=== PATIENT | male | born 1940 | race Caucasian/White ===

== ENCOUNTER 2017-04-30 03:43 | Inpatient (IN) | payer OTHER, MEDICARE ==
[~2017-04-30] VITALS: Ht 170.2 cm; Wt 79.4 kg
[2017-04-30] VITALS (10 sets, daily range): BP systolic 139–233; BP diastolic 72–132; PULSE 69–86; RESP 16–20; TEMP 96.5–98.3; O2SAT 92–99
[2017-04-30] MEDS ORDERED: SODIUM CHLORIDE 0.9% FLUSH 10 ML FLUSH IV FLUSH PRN ×2 (04:00→06:30)
[2017-04-30] MEDS ORDERED: MORPHINE SULFATE 4 MG/ML INJ IV PUSH ONE (04:00)
[2017-04-30] MEDS ORDERED: ONDANSETRON HCL 4 MG/2 ML VIAL IVP ONE (04:00)
--- NOTE | 2017-04-30 04:29 | PD ---
HPI Chief Complaint: Flank/Kidney Pain Time Seen by Provider: 03:53 Travel History International Travel<30 days: No Contact w/Intl Traveler<30days: No Traveled to known affect area: No History of Present Illness HPI 76-year-old male here for evaluation of left flank pain. The patient reports that he had the pain 2 days ago. The pain seemed to have resolved yesterday, then returned tonight, waking him up from sleep. The patient reports the pain as stabbing, slightly worse with movements, moderate to severe currently, associated with nausea. He denies hematuria or urinary symptoms. No chest pain or dyspnea. No paresthesias or motor deficits. No fevers or chills. 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 SKIN: Focused skin assessment warm/dry. HEAD: Atraumatic. Normocephalic. EYES: Pupils equal and round. No scleral icterus. No injection or drainage. ENT: Mucous membranes pink and moist. NECK: Trachea midline. No JVD. CARDIOVASCULAR: Regular rate and rhythm. Distal pulses brisk and equal bilaterally. RESPIRATORY: No accessory muscle use. Clear to auscultation. Breath sounds equal bilaterally. GASTROINTESTINAL: Abdomen soft, non-tender, nondistended. MUSCULOSKELETAL: No obvious deformities. No clubbing. No cyanosis. No edema. Moderate left CVA tenderness. No right CVA tenderness. NEUROLOGICAL: Awake and alert. No obvious cranial nerve deficits. Motor grossly within normal limits. Normal speech. PSYCHIATRIC: Appropriate mood and affect; insight and judgment normal. Data Data Last Documented VS Vital Signs Date Time Temp Pulse Resp B/P (MAP) Pulse Ox O2 Delivery O2 Flow Rate FiO2 04/30/17 06:28 04/30/17 05:00 69 16 97 Room Air 04/30/17 03:45 97.5 Orders Orders Complete Blood Count With Diff (04/30/17 03:58) Comprehensive Metabolic Panel (04/30/17 03:58) Lipase (04/30/17 03:58) Prothrombin Time / Inr (Pt) (04/30/17 03:58) Act Partial Throm Time (Ptt) (04/30/17 03:58) Urinalysis - C+S If Indicated (04/30/17 03:58) Iv Access Insert/Monitor (04/30/17 03:58) Ecg Monitoring (04/30/17 03:58) Oximetry (04/30/17 03:58) Morphine Inj (Morphine Inj) (04/30/17 04:00) Ondansetron Inj (Zofran Inj) (04/30/17 04:00) Sodium Chloride 0.9% Flush (Ns Flush) (04/30/17 04:00) Ckmb (Isoenzyme) Profile (04/30/17 03:58) Troponin I (04/30/17 03:58) CKMB (04/30/17 04:05) CKMB% (04/30/17 04:05) Sodium Chlor 0.9% 1000 Ml Inj (Ns 1000 M (04/30/17 05:17) Ct Abd/Pel W/O Iv Contrast (04/30/17 05:18) Urinary Catheter Insert/Apply (04/30/17 06:05) Tamsulosin (Flomax) (04/30/17 09:00) Admit To Inpatient (04/30/17 ) Vital Signs (Adult) Q4H (04/30/17 06:23) Activity Oob Ad Jayne (04/30/17 06:23) Intake + Output KATYA.QSHIFT (04/30/17 06:23) Diet Regular Basic (04/30/17 Breakfast) Sodium Chlor 0.9% 1000 Ml Inj (Ns 1000 M (04/30/17 06:23) Sodium Chloride 0.9% Flush (Ns Flush) (04/30/17 06:30) Sodium Chloride 0.9% Flush (Ns Flush) (04/30/17 09:00) Ondansetron Inj (Zofran Inj) (04/30/17 06:30) Comprehensive Metabolic Panel (05/01/17 06:00) Complete Blood Count With Diff (05/01/17 06:00) Scd Bilateral/Knee High KATYA.BID (04/30/17 06:23) Stephen Bilateral/Knee High KATYA.QSHIFT (04/30/17 06:30) Acetaminophen (Tylenol) (04/30/17 06:30) Acetamin-Hydrocod 325-5 Mg ([place] 5-325 (04/30/17 06:30) Morphine Inj (Morphine Inj) (04/30/17 06:30) Docusate Sodium-Senna (Michelle-Colace) (04/30/17 09:00) Magnesium Hydroxide Liq (Milk Of Magnesi (04/30/17 06:30) Sennosides (Senokot) (04/30/17 06:30) Bisacodyl Supp (Dulcolax Supp) (04/30/17 06:30) Lactulose Liq (Lactulose Liq) (04/30/17 06:30) Inpatient Certification (04/30/17 ) Consult Urology (04/30/17 ) Labs Laboratory Tests Test 04/30/17 04:05 04/30/17 05:30 White Blood Count 7.2 TH/MM3 Red Blood Count 4.36 MIL/MM3 Hemoglobin 13.3 GM/DL Hematocrit 40.0 % Mean Corpuscular Volume 91.7 FL Mean Corpuscular Hemoglobin 30.5 PG Mean Corpuscular Hemoglobin Concent 33.3 % Red Cell Distribution Width 14.5 % Platelet Count 186 TH/MM3 Mean Platelet Volume 8.8 FL Neutrophils (%) (Auto) 67.0 % Lymphocytes (%) (Auto) 20.3 % Monocytes (%) (Auto) 8.2 % Eosinophils (%) (Auto) 3.9 % Basophils (%) (Auto) 0.6 % Neutrophils # (Auto) 4.8 TH/MM3 Lymphocytes # (Auto) 1.5 TH/MM3 Monocytes # (Auto) 0.6 TH/MM3 Eosinophils # (Auto) 0.3 TH/MM3 Basophils # (Auto) 0.0 TH/MM3 CBC Comment DIFF FINAL Differential Comment Prothrombin Time 10.0 SEC Prothromb Time International Ratio 1.0 RATIO Activated Partial Thromboplast Time 28.3 SEC Blood Urea Nitrogen 26 MG/DL Creatinine 2.06 MG/DL Random Glucose 92 MG/DL Total Protein 7.4 GM/DL Albumin 3.6 GM/DL Calcium Level 8.7 MG/DL Alkaline Phosphatase 75 U/L Aspartate Amino Transf (AST/SGOT) 27 U/L Alanine Aminotransferase (ALT/SGPT) 29 U/L Total Bilirubin 0.5 MG/DL Sodium Level 144 MEQ/L Potassium Level 4.1 MEQ/L Chloride Level 110 MEQ/L Carbon Dioxide Level 27.0 MEQ/L Anion Gap 7 MEQ/L Estimat Glomerular Filtration Rate 31 ML/MIN Total Creatine Kinase 279 U/L Creatine Kinase MB 5.2 NG/ML Troponin I LESS THAN 0.02 NG/ML Lipase 559 U/L Urine Color LIGHT-YELLOW Urine Turbidity CLEAR Urine pH 5.5 Urine Specific [place] 1.007 Urine Protein NEG mg/dL Urine Glucose (UA) NEG mg/dL Urine Ketones NEG mg/dL Urine Occult Blood MOD Urine Nitrite NEG Urine Bilirubin NEG Urine Urobilinogen LESS THAN 2.0 MG/DL Urine Leukocyte Esterase NEG Urine RBC 9 /hpf Urine WBC 2 /hpf Urine Squamous Epithelial Cells <1 /hpf Urine Hyaline Casts 1 /lpf Urine Mucus FEW /lpf Microscopic Urinalysis Comment CULT NOT INDICATED MDM Medical Decision Making Medical Screen Exam Complete: Yes Emergency Medical Condition: Yes Differential Diagnosis Nephrolithiasis, ureterolithiasis, pyelonephritis, UTI, diverticulitis, dissection, AAA Narrative Course Initial vital signs show heart rate 84, blood pressure 233/130, pulse ox 99% on room air, oral temp of 97.5F. CBC: WBC 7.2, hemoglobin 13.3, hematocrit 40, platelets 186. CMP is remarkable for BUN 26, creatinine 2.06, GFR 31. Lipase is 559. Cardiac enzymes are negative. Patient reports that he is on Flomax, however is unaware of any previous history of renal insufficiency. There are no prior labs for comparison. UA shows moderate occult blood, 9 RBCs, few mucus. CT abdomen pelvis: CONCLUSION: 1. Bilateral hydronephrosis and hydroureter with distended urinary bladder with trabeculated wall. This is likely related to chronic bladder outlet obstruction given the enlarged prostate gland. 2. Moderate atherosclerotic disease. The patient voided just prior to CT abdomen pelvis and put out about 150 cc of urine, feeling as though he fully emptied his bladder. Vu will be placed for bladder outlet obstruction/obstructive uropathy. Patient's blood pressure remains elevated at 233/130. I suspect that this is likely secondary to urinary output obstruction and will reassess this after Vu catheter is placed. He is not displaying any signs or symptoms of hypertensive crisis. Vu catheter placed and patient had an immediate output of about 800 cc of clear urine. States that his left flank pain has resolved. Repeat blood pressure is now 200/100. He reports that he has had prostate issues and is on Flomax and is supposed to see a urologist in May 2017, however he cannot recall the name of this urologist. Given obstructive uropathy with renal insufficiency and bilateral hydronephrosis , the patient will be admitted for further treatment and evaluation and likely neurology consultation. Case discussed with hospitalist Dr. Alberto who will admit the patient to her service. Diagnosis Primary Impression: Obstructive uropathy Additional Impressions: Renal insufficiency Enlarged prostate Flank pain Admitting Information Admitting Physician Requests: Admit Scripts No Active Prescriptions or Reported Meds Xander Trujillo MD Apr 30, 2017 04:29
[2017-04-30 04:41] LABS: AUTOMATED NEUTROPHIL # 4.8 TH/MM3 (1.8-7.7); BASOPHIL % 0.6 % (0.0-2.0); EOSINOPHIL # 0.3 TH/MM3 (0-0.4); EOSINOPHIL % 3.9 % (0.0-4.0); HEMO FLAGS DIFF FINAL; LYMPH % 20.3 % (9.0-44.0); LYMPHOCYTE # 1.5 TH/MM3 (1.0-4.8); MEAN CELL VOLUME 91.7 FL (80.0-100.0); MEAN CORPUSCULAR HEMOGLOBIN 30.5 PG (27.0-34.0); MEAN CORPUSCULAR HGB CONC 33.3 % (32.0-36.0); MONO % 8.2 % (0.0-8.0); PLATELET COUNT 186 TH/MM3 (150-450); RED BLOOD COUNT 4.36 MIL/MM3 (4.50-5.90); RED CELL DISTRIBUTION WIDTH 14.5 % (11.6-17.2); WHITE BLOOD COUNT 7.2 TH/MM3 (4.0-11.0)
[2017-04-30 04:57] LABS: APTT (PATIENT) 28.3 SEC (24.3-30.1)
[2017-04-30 05:07] LABS: ALT (GPT) 29 U/L (12-78); ANION GAP 7 MEQ/L (5-15); AST (GOT) 27 U/L (15-37); BLOOD UREA NITROGEN 26 MG/DL (7-18); CHLORIDE 110 MEQ/L (98-107); GLOMERULAR FILTRATION RATE 31 ML/MIN (>89); POTASSIUM 4.1 MEQ/L (3.5-5.1); SODIUM (NA) 144 MEQ/L (136-145)
[2017-04-30 05:12] LABS: ALKALINE PHOSPHATASE 75 U/L (45-117); CREATINE KINASE 279 U/L (39-308); TOTAL BILIRUBIN ADULT 0.5 MG/DL (0.2-1.0)
[2017-04-30] MEDS ORDERED: SODIUM CHLOR 0.9% 1000 ML INJ 1,000 ML IV SCH (05:17)
[2017-04-30 05:25] LABS: CKMB 5.2 NG/ML (0.5-3.6)
--- NOTE | 2017-04-30 05:48 | RADRPT ---
EXAM DATE/TIME: 04/30/2017 05:29 [place] COMPARISON: No previous studies available for comparison. INDICATIONS : Intermittent left flank pain with vomiting X 3 days. ORAL CONTRAST: No oral contrast ingested. RADIATION DOSE: 7.51 CTDIvol (mGy) MEDICAL HISTORY : Melanoma. SURGICAL HISTORY : None. ENCOUNTER: Initial ACUITY: 1 day PAIN SCALE: 3/10 LOCATION: Left flank TECHNIQUE: Volumetric scanning of the abdomen and pelvis was performed. Using automated exposure control and ad justment of the mA and/or kV according to patient size, radiation dose was kept as low as reasonably achievable to obtain optimal diagnostic quality images. DICOM format image data is available electro nically for review and comparison. FINDINGS: LOWER LUNGS: There is mild atelectasis bilaterally. LIVER: Homogeneous density without lesion. There is no dilation of the biliary tree. No calcified gallston es. SPLEEN: Normal size without lesion. PANCREAS: Within normal limits. KIDNEYS: Normal in size and shape. There is no mass or stone. There is bilateral hydronephrosis and hydrouret er. ADRENAL GLANDS: Within normal limits. VASCULAR: There is no aortic aneurysm. There is moderate atherosclerotic disease. BOWEL/MESENTERY: The stomach, small bowel, and colon demonstrate no acute abnormality. There is no free intraperitone al air or fluid. ABDOMINAL WALL: Within normal limits. RETROPERITONEUM: There is no lymphadenopathy. BLADDER: Urinary bladder is very distended with the dome extending to the level of the umbilicus. Wall demonst rates trabeculation with focal areas of outpouching. REPRODUCTIVE: Prostate gland is enlarged. INGUINAL: There is no lymphadenopathy or hernia. MUSCULOSKELETAL: There are degenerative changes of the lumbar spine. CONCLUSION: 1. Bilateral hydronephrosis and hydroureter with distended urinary bladder with trabeculated wall. Th is is likely related to chronic bladder outlet obstruction given the enlarged prostate gland. 2. Moderate atherosclerotic disease. Victor Hugo Del Rosario MD on April 30, 2017 at 5:42 Board Certified Radiologist. This report was verified electronically.
[2017-04-30 05:52] LABS: BLOOD, URINE MOD (NEG); COMMENT (UR) CULT NOT INDICATED; CULTURE IF INDICATED CULT NOT INDICATED; GLUCOSE,URINE NEG (NEG); HYALINE CAST, URINE 1 /lpf (RARE); KETONE, URINE NEG (NEG); MUCUS URINE FEW /lpf (OCC); NITRITE,URINE NEG (NEG); PH, URINE 5.5 (5.0-8.5); SQUAMOUS EPITHELIAL CELL URINE <1 /hpf (0-5); URINE COLOR LIGHT-YELLOW (YELLW/STRAW)
[2017-04-30] MEDS ORDERED: MORPHINE SULFATE 4 MG/ML INJ IV PUSH PRN (06:30)
[2017-04-30] MEDS ORDERED: LACTULOSE SYRUP 20 GM/30 ML CUP PO PRN (06:30)
[2017-04-30] MEDS ORDERED: ACETAMINOPHEN/HYDROcodone 325 MG/5 MG TAB PO PRN (06:30)
[2017-04-30] MEDS ORDERED: SENNOSIDES 8.6 MG TAB PO PRN (06:30)
[2017-04-30] MEDS ORDERED: ACETAMINOPHEN 325 MG TAB PO PRN (06:30)
[2017-04-30] MEDS ORDERED: MAGNESIUM HYDROXIDE SUSP 30 ML CUP PO PRN (06:30)
[2017-04-30] MEDS ORDERED: ONDANSETRON HCL 4 MG/2 ML VIAL IVP PRN (06:30)
[2017-04-30] MEDS ORDERED: BISACODYL 10 MG SUPP RECTAL PRN (06:30)
[2017-04-30] MEDS: DOCUSATE SODIUM 50 MG/SENNA 8.6 MG TAB PO SCH ×2 (08:26→20:54)
[2017-04-30] MEDS: TAMSULOSIN HCL 0.4 MG CAP PO SCH (08:26)
[2017-04-30] MEDS: SODIUM CHLORIDE 0.9% FLUSH 10 ML FLUSH IV FLUSH SCH ×2 (08:27→20:54)
[2017-04-30] MEDS ORDERED: amLODIPine BESYLATE 5 MG TAB PO SCH (09:00)
[2017-04-30] MEDS: SODIUM CHLOR 0.9% 1000 ML INJ 1,000 ML IV SCH ×2 (09:00→15:43)
--- NOTE | 2017-04-30 09:58 | HHI.HP ---
[facility] Service [facility] Primary Care Physician Klever Oropeza MD Admission Diagnosis obstructive uropathy, renal insufficiency, enlarged prostate Diagnoses: Travel History International Travel<30 Days: No Contact w/Intl Traveler <30 Da: No Traveled to Known Affected Are: No History of Present Illness 76-year-old male with a past medical history significant for BPH presents to the emergency department with a 2 day history of left sided flank pain. The patient states that his pain was so great that he had emesis approximately 4-5 times. His pain resolved somewhat during the day yesterday and he went to bed but awoke from sleep at 2 AM in severe pain. He was brought to the emergency department for further evaluation. He denies any fever or chills. States he takes Flomax daily. He states he has been urinating small amounts lately. Denies any difficulty with starting or stopping flow. Does report that he feels he was not fully emptying his bladder. He was evaluated by urology in May 2015 for an elevated PSA, was started on Flomax with instructions to observe. Lab values significant for a creatinine of 2.06. CT of the abdomen/ pelvis revealed bilateral hydronephrosis and hydroureter with distended urinary bladder likely related to chronic bladder outlet obstruction secondary to enlarged prostate. Patient was found to be hypertensive on his arrival to the emergency department. He states he has never had high blood pressure and does not take any antihypertensive medications. His blood pressure this morning was 207/108. He denies headache or visual changes. Review of Systems Denies fever or chills Denies blurry vision, otorrhea, rhinorrhea Denies sore throat and cough No chest pain, palpitations, shortness of breath No abdominal pain Denies constipation/diarrhea/nausea/vomiting Denies muscle pain/weakness No rashes Past Family Social History Past Medical History BPH Past Surgical History Skin cancer removal on his face Reported Medications Flomax daily Allergies: Coded Allergies: No Known Allergies (Unverified , 04/30/17) Family History No family history of coronary artery disease or diabetes mellitus Social History Never smoker. Occasional alcohol. Denies illicit drugs. Physical Exam Vital Signs Vital Signs Date Time Temp Pulse Resp B/P (MAP) Pulse Ox O2 Delivery O2 Flow Rate FiO2 04/30/17 08:00 96.5 71 18 212/101 (138) 95 207/108 (141) 04/30/17 06:43 69 16 172/99 (123) 97 Room Air 04/30/17 06:28 04/30/17 05:00 69 16 205/100 (135) 97 Room Air 04/30/17 03:59 96 Room Air 04/30/17 03:55 223/118 (153) 224/132 (162) 04/30/17 03:52 80 16 223/118 (153) 97 04/30/17 03:45 97.5 84 18 233/130 (164) 99 Room Air Physical Exam GENERAL: male sitting up in bed eating breakfast SKIN: No rashes, ecchymoses or lesions. Cool and dry. HEAD: Atraumatic. Normocephalic. No temporal or scalp tenderness. EYES: Pupils equal round and reactive. Extraocular motions intact. No scleral icterus. No injection or drainage. ENT: Nose without bleeding, purulent drainage or septal hematoma. Throat without erythema, tonsillar hypertrophy or exudate. Uvula midline. Airway patent. NECK: Trachea midline. No JVD or lymphadenopathy. Supple, nontender, no meningeal signs. CARDIOVASCULAR: Regular rate and rhythm without murmurs, gallops, or rubs. RESPIRATORY: Clear to auscultation. Breath sounds equal bilaterally. No wheezes , rales, or rhonchi. GASTROINTESTINAL: Abdomen soft, non-tender, nondistended. No hepato-splenomegaly , or palpable masses. No guarding. MUSCULOSKELETAL: Extremities without clubbing, cyanosis, or edema. No joint tenderness, effusion, or edema noted. No calf tenderness. NEUROLOGICAL: Awake and alert. Cranial nerves II through XII intact. Motor and sensory grossly within normal limits. Normal speech. Laboratory Laboratory Tests Test 04/30/17 04:05 04/30/17 05:30 White Blood Count 7.2 Red Blood Count 4.36 Hemoglobin 13.3 Hematocrit 40.0 Mean Corpuscular Volume 91.7 Mean Corpuscular Hemoglobin 30.5 Mean Corpuscular Hemoglobin Concent 33.3 Red Cell Distribution Width 14.5 Platelet Count 186 Mean Platelet Volume 8.8 Neutrophils (%) (Auto) 67.0 Lymphocytes (%) (Auto) 20.3 Monocytes (%) (Auto) 8.2 Eosinophils (%) (Auto) 3.9 Basophils (%) (Auto) 0.6 Neutrophils # (Auto) 4.8 Lymphocytes # (Auto) 1.5 Monocytes # (Auto) 0.6 Eosinophils # (Auto) 0.3 Basophils # (Auto) 0.0 CBC Comment DIFF FINAL Differential Comment Prothrombin Time 10.0 Prothromb Time International Ratio 1.0 Activated Partial Thromboplast Time 28.3 Blood Urea Nitrogen 26 Creatinine 2.06 Random Glucose 92 Total Protein 7.4 Albumin 3.6 Calcium Level 8.7 Alkaline Phosphatase 75 Aspartate Amino Transf (AST/SGOT) 27 Alanine Aminotransferase (ALT/SGPT) 29 Total Bilirubin 0.5 Sodium Level 144 Potassium Level 4.1 Chloride Level 110 Carbon Dioxide Level 27.0 Anion Gap 7 Estimat Glomerular Filtration Rate 31 Total Creatine Kinase 279 Creatine Kinase MB 5.2 Troponin I LESS THAN 0.02 Lipase 559 Urine Color LIGHT-YELLOW Urine Turbidity CLEAR Urine pH 5.5 Urine Specific [place] 1.007 Urine Protein NEG Urine Glucose (UA) NEG Urine Ketones NEG Urine Occult Blood MOD Urine Nitrite NEG Urine Bilirubin NEG Urine Urobilinogen LESS THAN 2.0 Urine Leukocyte Esterase NEG Urine RBC 9 Urine WBC 2 Urine Squamous Epithelial Cells <1 Urine Hyaline Casts 1 Urine Mucus FEW Microscopic Urinalysis Comment CULT NOT INDICATED Result Diagram: 04/30/1740404/30/17404 Caprini VTE Risk Assessment Caprini VTE Risk Assessment: Mod/High Risk (score >= 2) Caprini Risk Assessment Model Point Value = 1 Point Value = 2 Point Value = 3 Point Value = 5 Age 41-60 Minor surgery BMI > 25 kg/m2 Swollen legs Varicose veins or History of unexplained or recurrent spontaneous Oral contraceptives or hormone replacement Sepsis (< 1 month) Serious lung disease, including pneumonia (< 1 month) Abnormal pulmonary function Acute myocardial infarction Congestive heart failure (< 1 month) History of inflammatory bowel disease Medical patient at bed rest Age 61-74 Arthroscopic surgery Major open surgery (> 45 min) Laparoscopic surgery (> 45 min) Malignancy Confined to bed (> 72 hours) Immobilizing plaster cast Central venous access Age >= 75 History of VTE Family history of VTE Factor V Leiden Prothrombin [id number] Lupus anticoagulant Anticardiolipin antibodies Elevated serum homocysteine Heparin-induced thrombocytopenia Other congenital or acquired thrombophilia Stroke (< 1 month) Elective arthroplasty Hip, pelvis, or leg fracture Acute spinal cord injury (< 1 month) Prophylaxis Regimen Total Risk Factor Score Risk Level Prophylaxis Regimen 0-1 Low Early ambulation 2 Moderate Order ONE of the following: *Sequential Compression Device (SCD) *Heparin 5000 units SQ BID 3-4 Higher Order ONE of the following medications: *Heparin 5000 units SQ TID *Enoxaparin/Lovenox 40 mg SQ daily (WT < 150 kg, CrCl > 30 mL/min) *Enoxaparin/Lovenox 30 mg SQ daily (WT < 150 kg, CrCl > 10-29 mL/min) *Enoxaparin/Lovenox 30 mg SQ BID (WT < 150 kg, CrCl > 30 mL/min) AND/OR *Sequential Compression Device (SCD) 5 or more Highest Order ONE of the following medications: *Heparin 5000 units SQ TID (Preferred with Epidurals) *Enoxaparin/Lovenox 40 mg SQ daily (WT < 150 kg, CrCl > 30 mL/min) *Enoxaparin/Lovenox 30 mg SQ daily (WT < 150 kg, CrCl > 10-29 mL/min) *Enoxaparin/Lovenox 30 mg SQ BID (WT < 150 kg, CrCl > 30 mL/min) AND *Sequential Compression Device (SCD) Assessment and Plan Assessment and Plan 76-year-old male with a past medical history BPH presents with renal failure secondary to obstruction and hypertensive urgency. 1. Hypertensive urgency Patient without history of hypertension and not on any antihypertensive medications at home Started amlodipine, will monitor blood pressure and adjust dosing as needed When necessary clonidine 2. Obstructive uropathy/acute renal insufficiency Creatinine 2.06, no baseline for comparison Patient with no history of CKD. CT of the abdomen and pelvis shows bilateral hydronephrosis with hydroureter likely secondary to obstruction from enlarged prostate Vu placed in the ED with 800 cc output of urine Continue Vu catheter Urology consulted, appreciate recommendations Follow renal function, anticipate improvement now that patient has Vu IVF hydration FEN Regular diet NS at 100 cc/hr Electrolytes: monitor and replete prn Heparin Physician Certification 2 Midnight Certification Type: Admission for Inpatient Services Order for Inpatient Services The services are ordered in accordance with Medicare regulations or non- Medicare payer requirements, as applicable. In the case of services not specified as inpatient-only, they are appropriately provided as inpatient services in accordance with the 2-midnight benchmark. Estimated LOS (days): 2 2 days is the estimated time the patient will need to remain in the hospital, assuming treatment plan goals are met and no additional complications. Post-Hospital Plan: Not yet determined Rahel Lyle MD Apr 30, 2017 09:58
[2017-04-30] MEDS ORDERED: TAMSULOSIN HCL 0.4 MG CAP PO SCH (10:00)
[2017-04-30] MEDS: cloNIDine HCL 0.1 MG TAB PO PRN (21:09)
[2017-04-30] MEDS: HEPARIN SODIUM - SQ 10,000 UNITS/ML VIAL SQ SCH (21:14)
--- NOTE | 2017-04-30 22:15 | EKG ---
Date Performed: 04/30/2017 Time Performed: 03:56:51 PTAGE: 76 years EKG: Sinus rhythm RIGHT BUNDLE BRANCH BLOCK ABNORMAL ECG NO PREVIOUS TRACING DOCTOR: Johnny Garcia Interpretating Date/Time 04/30/2017 22:14:20
[2017-05-01] VITALS: BP 135/75; PULSE 82; RESP 20; TEMP 98.8; O2SAT 92
[2017-05-01] MEDS: SODIUM CHLOR 0.9% 1000 ML INJ 1,000 ML IV SCH ×3 (01:43→21:21)
[2017-05-01 06:53] LABS: AUTOMATED NEUTROPHIL # 4.4 TH/MM3 (1.8-7.7); BASOPHIL % 0.7 % (0.0-2.0); EOSINOPHIL # 0.3 TH/MM3 (0-0.4); EOSINOPHIL % 4.3 % (0.0-4.0); HEMATOCRIT 36.6 % (39.0-51.0); HEMO FLAGS DIFF FINAL; LYMPH % 23.5 % (9.0-44.0); LYMPHOCYTE # 1.6 TH/MM3 (1.0-4.8); MEAN CORPUSCULAR HEMOGLOBIN 30.8 PG (27.0-34.0); MEAN CORPUSCULAR HGB CONC 33.5 % (32.0-36.0); MONO % 7.8 % (0.0-8.0); NEUT % 63.7 % (16.0-70.0); PLATELET COUNT 161 TH/MM3 (150-450); RED BLOOD COUNT 3.98 MIL/MM3 (4.50-5.90); RED CELL DISTRIBUTION WIDTH 13.9 % (11.6-17.2); WHITE BLOOD COUNT 6.9 TH/MM3 (4.0-11.0)
[2017-05-01 07:20] LABS: ALKALINE PHOSPHATASE 66 U/L (45-117); ALT (GPT) 16 U/L (12-78); ANION GAP 7 MEQ/L (5-15); AST (GOT) 19 U/L (15-37); BICARBONATE 26.2 MEQ/L (21.0-32.0); BLOOD UREA NITROGEN 22 MG/DL (7-18); CHLORIDE 110 MEQ/L (98-107); GLOMERULAR FILTRATION RATE 36 ML/MIN (>89); POTASSIUM 3.9 MEQ/L (3.5-5.1); SODIUM (NA) 143 MEQ/L (136-145); TOTAL BILIRUBIN ADULT 0.5 MG/DL (0.2-1.0)
[2017-05-01 08:00] VITALS: BP 146/80; PULSE 75; RESP 18; TEMP 97; O2SAT 96
[2017-05-01] MEDS: HEPARIN SODIUM - SQ 10,000 UNITS/ML VIAL SQ SCH ×2 (09:00→21:00)
[2017-05-01] MEDS: TAMSULOSIN HCL 0.4 MG CAP PO SCH (09:23)
[2017-05-01] MEDS: DOCUSATE SODIUM 50 MG/SENNA 8.6 MG TAB PO SCH ×2 (09:23→21:21)
[2017-05-01] MEDS: SODIUM CHLORIDE 0.9% FLUSH 10 ML FLUSH IV FLUSH SCH ×2 (09:24→21:00)
[2017-05-01 12:00] VITALS: BP 156/74; PULSE 77; RESP 18; TEMP 96.5; O2SAT 95
--- NOTE | 2017-05-01 13:13 | HHI.PR ---
Subjective Remarks Urology consult pending. She has some improvement in his renal function after catheter placement. Hypertensive urgency is also improving through time. Objective Vital Signs Date Time Temp Pulse Resp B/P (MAP) Pulse Ox O2 Delivery O2 Flow Rate FiO2 05/01/17 12:00 96.5 77 18 156/74 (101) 95 05/01/17 08:00 97.0 75 18 146/80 (102) 96 05/01/17 00:00 98.8 82 20 135/75 (95) 92 04/30/17 20:00 97.6 86 20 167/81 (109) 92 04/30/17 16:00 98.3 79 18 139/87 (104) 98 I/O 04/30/17 04/30/17 04/30/17 05/01/17 05/01/17 05/01/17 06:59 14:59 22:59 06:59 14:59 22:59 Intake Total 1506 ml 1777 ml Output Total 1200 ml 2150 ml 450 ml 1650 ml Balance -1200 ml -2150 ml 1056 ml 127 ml Intake Oral 1000 ml 240 ml IV Total 506 ml 1537 ml Output Urine Total 1200 ml 2150 ml 450 ml 1650 ml Result Diagram: 05/01/172 05/01/17 045 Objective Remarks GENERAL: NAD, A&Ox3, catheter in place HEAD: Normocephalic. NECK: Supple, trachea midline. No lymphadenopathy. EYES: No scleral icterus. No injection or drainage. CARDIOVASCULAR: Regular rate and rhythm without murmurs, gallops, or rubs. RESPIRATORY: Breath sounds equal bilaterally. No accessory muscle use. GASTROINTESTINAL: Abdomen soft, non-tender, nondistended. MUSCULOSKELETAL: No cyanosis, or edema. SKIN: Warm and dry. NEURO: No focal neurological deficitis. A/P Problem List: (1) Enlarged prostate ICD Code: N40.0 - Benign prostatic hyperplasia without lower urinary tract symptoms Status: Acute (2) Obstructive uropathy ICD Code: N13.9 - Obstructive and reflux uropathy, unspecified Status: Acute (3) Renal insufficiency ICD Code: N28.9 - Disorder of kidney and ureter, unspecified Status: Acute (4) Flank pain ICD Code: R10.9 - Unspecified abdominal pain Status: Acute Assessment and Plan Assessment and Plan 76-year-old male admitted secondary to urinary obstruction with acute renal insufficiency Hypertensive urgency Hypertension Improving Blood pressure treatments adjusted Continue to monitor blood pressures Obstructive uropathy Acute renal insufficiency Acute kidney injury Follow renal function Improving after catheter placement Continue to monitor renal function Urology following DVT prophylaxis Mario Willoughby MD May 01, 2017 13:13
[2017-05-01] MEDS ORDERED: MAGNESIUM HYDROXIDE SUSP 30 ML CUP PO PRN (13:15)
[2017-05-01 16:00] VITALS: BP 143/76; PULSE 73; RESP 18; TEMP 97.2; O2SAT 96
--- NOTE | 2017-05-01 19:58 | PD.CONS ---
HPI Service Urology Consult Requested By Reason for Consult Urinary retention Primary Care Physician Klever Oropeza MD Diagnosis: History of Present Illness 76yo male with history of BPH seen in consultation for Urinary retention. Patient has been having difficulty in voiding for the last several days with some bilateral flank pain. He typically sees Dr. Queen in clinic for urology and has been put on Flomax therapy for his lower urinary tract symptoms. The last few days his symptoms have progressively worsened to which point she was unable to void at all last night and developed significant abdominal and bilateral flank pain. CT scan identified a distended bladder with bilateral hydronephrosis and elevated creatinine. Vu catheter was placed with over 600 cc removed. Patient currently doing well and comfortable with catheter in place. No blood in the urine noted. Denies any fevers chills nausea vomiting. Review of Systems ROS Limitations: Clinical Condition Constitutional: DENIES: Fever Eyes: DENIES: Blurred vision Ears, nose, mouth, throat: DENIES: Hearing loss Respiratory: DENIES: Cough Cardiovascular: DENIES: Chest pain Gastrointestinal: DENIES: Abdominal pain Musculoskeletal: DENIES: Joint pain Integumentary: DENIES: Rash Neurologic: DENIES: Headache Psychiatric: DENIES: Anxiety Except as stated in HPI: all other systems reviewed are Neg Past Family Social History Past Medical History BPH Past Surgical History Skin cancer removal on his face Reported Medications Reported Meds & Active Scripts Active No Active Prescriptions or Reported Medications Allergies: Coded Allergies: No Known Allergies (Unverified , 04/30/17) Active Ordered Medications Current Medications Medications (Trade) Dose Ordered Sig/Noa Route Start Time Stop Time Status Last Admin (Flomax) 0.4 mg DAILY PO 04/30/17 09:00 05/02/17 08:51 Sodium Chloride 1,000 ml @ 70 mls/hr [id number] IV 04/30/17 06:23 05/01/17 21:21 (NS Flush) 2 ml UNSCH PRN IV FLUSH 04/30/17 06:30 (NS Flush) 2 ml BID IV FLUSH 04/30/17 09:00 05/01/17 09:24 (Zofran Inj) 4 mg Q6H PRN IVP 04/30/17 06:30 (Tylenol) 650 mg Q6H PRN PO 04/30/17 06:30 (Vinton 5-325 Mg) 1 tab Q4H PRN PO 04/30/17 06:30 (Morphine Inj) 2 mg Q3H PRN IV PUSH 04/30/17 06:30 (Michelle-Colace) 1 tab BID PO 04/30/17 09:00 05/02/17 08:51 (Senokot) 17.2 mg Q12H PRN PO 04/30/17 06:30 (Dulcolax Supp) 10 mg DAILY PRN RECTAL 04/30/17 06:30 (Lactulose Liq) 30 ml DAILY PRN PO 04/30/17 06:30 (Catapres) 0.1 mg Q6H PRN PO 04/30/17 08:00 05/01/17 21:20 (Heparin Inj) 5,000 units Q12HR SQ 04/30/17 21:00 05/01/17 21:00 (Norvasc) 10 mg DAILY PO 05/01/17 09:00 05/02/17 08:51 (Milk Of Magnesia Liq) 30 ml DAILY PRN PO 05/01/17 13:15 Family History No family history of coronary artery disease or diabetes mellitus Social History Never smoker. Occasional alcohol. Denies illicit drugs. Physical Exam Vital Signs Date Time Temp Pulse Resp B/P (MAP) Pulse Ox O2 Delivery O2 Flow Rate FiO2 05/01/17 16:00 97.2 73 18 143/76 (98) 96 05/01/17 12:00 96.5 77 18 156/74 (101) 95 05/01/17 08:00 97.0 75 18 146/80 (102) 96 05/01/17 00:00 98.8 82 20 135/75 (95) 92 04/30/17 20:00 97.6 86 20 167/81 (109) 92 Physical Exam GENERAL: This is a well-nourished, well-developed patient, in no apparent distress. SKIN: No rashes, ecchymoses or lesions. Cool and dry. HEAD: Atraumatic. Normocephalic. No temporal or scalp tenderness. EYES:. Extraocular motions intact. No scleral icterus. No injection or drainage. ENT: Nose without bleeding, purulent drainage. Airway patent. NECK: Trachea midline. No JVD or lymphadenopathy. CARDIOVASCULAR: Normal pulses RESPIRATORY: Nonlabored GASTROINTESTINAL: Abdomen soft, non-tender, nondistended. GENITOURINARY: Vu catheter in place, clear yellow drainage MUSCULOSKELETAL: Extremities without clubbing, cyanosis, or edema. NEUROLOGICAL: Awake and alert. Motor and sensory grossly within normal limits. Normal speech. Lab results reviewed: Yes Laboratory Tests Test 05/01/17 04:52 White Blood Count 6.9 Red Blood Count 3.98 Hemoglobin 12.2 Hematocrit 36.6 Mean Corpuscular Volume 92.0 Mean Corpuscular Hemoglobin 30.8 Mean Corpuscular Hemoglobin Concent 33.5 Red Cell Distribution Width 13.9 Platelet Count 161 Mean Platelet Volume 8.7 Neutrophils (%) (Auto) 63.7 Lymphocytes (%) (Auto) 23.5 Monocytes (%) (Auto) 7.8 Eosinophils (%) (Auto) 4.3 Basophils (%) (Auto) 0.7 Neutrophils # (Auto) 4.4 Lymphocytes # (Auto) 1.6 Monocytes # (Auto) 0.5 Eosinophils # (Auto) 0.3 Basophils # (Auto) 0.0 CBC Comment DIFF FINAL Differential Comment Blood Urea Nitrogen 22 Creatinine 1.84 Random Glucose 90 Total Protein 6.2 Albumin 2.8 Calcium Level 8.1 Alkaline Phosphatase 66 Aspartate Amino Transf (AST/SGOT) 19 Alanine Aminotransferase (ALT/SGPT) 16 Total Bilirubin 0.5 Sodium Level 143 Potassium Level 3.9 Chloride Level 110 Carbon Dioxide Level 26.2 Anion Gap 7 Estimat Glomerular Filtration Rate 36 Result Diagram: 05/01/17 0452 05/01/17 0452 Personally reviewed images: Yes Imaging Last Impressions Abdomen/Pelvis CT 04/30/17 0518 Signed Impressions: Service Date/Time: Sunday, April 30, 2017 05:29 - CONCLUSION: 1. Bilateral hydronephrosis and hydroureter with distended urinary bladder with trabeculated wall. This is likely related to chronic bladder outlet obstruction given the enlarged prostate gland. 2. Moderate atherosclerotic disease. Victor Hugo Del Rosario MD Assessment and Plan Problem List: (1) Flank pain ICD Code: R10.9 - Unspecified abdominal pain Status: Acute (2) Renal insufficiency ICD Code: N28.9 - Disorder of kidney and ureter, unspecified Status: Acute (3) Obstructive uropathy ICD Code: N13.9 - Obstructive and reflux uropathy, unspecified Status: Acute (4) Enlarged prostate ICD Code: N40.0 - Benign prostatic hyperplasia without lower urinary tract symptoms Status: Acute Assessment and Plan -Vu catheter in place draining well with improvement in serum creatinine since placement. -Recommend maintaining Vu catheter in place and continue Flomax therapy. -Patient may be discharged home with the Vu catheter in place with followup in urology clinic for catheter removal and voiding trial with further management regarding his BPH and lower urinary tract symptoms with Dr. Queen as an outpatient. -Please call with questions Roberth Mishra MD May 01, 2017 19:58
[2017-05-01 20:00] VITALS: BP 178/82; PULSE 81; RESP 20; TEMP 98.1; O2SAT 95
[2017-05-01] MEDS: cloNIDine HCL 0.1 MG TAB PO PRN (21:20)
--- NOTE | 2017-05-01 22:16 | HHI.PR ---
Subjective Remarks NOT SEEN Objective Vitals Vital Signs Date Time Temp Pulse Resp B/P (MAP) Pulse Ox O2 Delivery O2 Flow Rate FiO2 05/01/17 20:00 98.1 81 20 178/82 (114) 95 05/01/17 16:00 97.2 73 18 143/76 (98) 96 05/01/17 12:00 96.5 77 18 156/74 (101) 95 05/01/17 08:00 97.0 75 18 146/80 (102) 96 05/01/17 00:00 98.8 82 20 135/75 (95) 92 I/O 04/30/17 04/30/17 04/30/17 05/01/17 05/01/17 05/01/17 07:00 15:00 23:00 07:00 15:00 23:00 Intake Total 1506 ml 1777 ml 2400 ml Output Total 1200 ml 2150 ml 450 ml 1650 ml 800 ml Balance -1200 ml -2150 ml 1056 ml 127 ml 1600 ml Intake Oral 1000 ml 240 ml 1400 ml IV Total 506 ml 1537 ml 1000 ml Output Urine Total 1200 ml 2150 ml 450 ml 1650 ml 800 ml # Bowel Movements 1 Result Diagram: 05/01/17 0452 05/01/17 0452 Imaging Last Impressions Abdomen/Pelvis CT 04/30/1718 Signed Impressions: Service Date/Time: Sunday, April 30, 2017 05:29 - CONCLUSION: 1. Bilateral hydronephrosis and hydroureter with distended urinary bladder with trabeculated wall. This is likely related to chronic bladder outlet obstruction given the enlarged prostate gland. 2. Moderate atherosclerotic disease. Victor Hugo Del Rosario MD Objective Remarks GENERAL: NAD, A&Ox3, HEAD: Normocephalic. NECK: Supple, trachea midline. No lymphadenopathy. EYES: No scleral icterus. No injection or drainage. CARDIOVASCULAR: Regular rate and rhythm without murmurs, gallops, or rubs. RESPIRATORY: Breath sounds equal bilaterally. No accessory muscle use. GASTROINTESTINAL: Abdomen soft, non-tender, nondistended. MUSCULOSKELETAL: No cyanosis, or edema. SKIN: Warm and dry. NEURO: No focal neurological deficits. A/P Problem List: (1) Obstructive uropathy ICD Code: N13.9 - Obstructive and reflux uropathy, unspecified Status: Acute Assessment and Plan 76-year-old male admitted secondary to urinary obstruction with acute renal insufficiency Hypertensive urgency Hypertension Improving Blood pressure treatments adjusted(Norvasc and Flomax) Continue to monitor blood pressures Obstructive uropathy Acute renal insufficiency Acute kidney injury Follow renal function Improving after catheter placement Continue to monitor renal function Urology following DVT prophylaxis aNm Yap MD May 01, 2017 22:16
[2017-05-02] VITALS: BP 141/69; PULSE 73; RESP 20; TEMP 97.6; O2SAT 96
[2017-05-02 04:00] VITALS: BP 150/74; PULSE 71; RESP 18; TEMP 97.9; O2SAT 95
[2017-05-02 07:54] LABS: AUTOMATED NEUTROPHIL # 3.3 TH/MM3 (1.8-7.7); BASOPHIL # 0.1 TH/MM3 (0-0.2); BASOPHIL % 0.9 % (0.0-2.0); EOSINOPHIL # 0.3 TH/MM3 (0-0.4); EOSINOPHIL % 4.8 % (0.0-4.0); HEMATOCRIT 36.8 % (39.0-51.0); HEMO FLAGS DIFF FINAL; LYMPHOCYTE # 1.6 TH/MM3 (1.0-4.8); MEAN CELL VOLUME 91.9 FL (80.0-100.0); MEAN CORPUSCULAR HEMOGLOBIN 30.6 PG (27.0-34.0); MEAN CORPUSCULAR HGB CONC 33.3 % (32.0-36.0); MONO % 8.1 % (0.0-8.0); NEUT % 58.2 % (16.0-70.0); PLATELET COUNT 155 TH/MM3 (150-450); WHITE BLOOD COUNT 5.8 TH/MM3 (4.0-11.0)
[2017-05-02 08:00] VITALS: BP 128/91; PULSE 87; RESP 18; TEMP 98.6; O2SAT 94
[2017-05-02 08:30] LABS: ANION GAP 8 MEQ/L (5-15); AST (GOT) 14 U/L (15-37); BICARBONATE 25.5 MEQ/L (21.0-32.0); BLOOD UREA NITROGEN 18 MG/DL (7-18); CHLORIDE 111 MEQ/L (98-107); GLOMERULAR FILTRATION RATE 49 ML/MIN (>89); POTASSIUM 3.8 MEQ/L (3.5-5.1); SODIUM (NA) 144 MEQ/L (136-145)
[2017-05-02 08:33] LABS: ALKALINE PHOSPHATASE 66 U/L (45-117); ALT (GPT) 15 U/L (12-78); TOTAL BILIRUBIN ADULT 0.6 MG/DL (0.2-1.0)
[2017-05-02] MEDS: TAMSULOSIN HCL 0.4 MG CAP PO SCH (08:51)
[2017-05-02] MEDS: DOCUSATE SODIUM 50 MG/SENNA 8.6 MG TAB PO SCH (08:51)
[2017-05-02 12:00] VITALS: BP 139/70; PULSE 77; RESP 15; TEMP 97.2; O2SAT 95
--- NOTE | 2017-05-02 15:39 | HHI.PR ---
Subjective Remarks Follow-up BPH. Patient has a Vu catheter draining blood-tinged urine. Denies abdominal pain. He wants to go home. Discussed with RN and case management. Awaiting return call from regarding hematuria Objective Vitals Vital Signs Date Time Temp Pulse Resp B/P (MAP) Pulse Ox O2 Delivery O2 Flow Rate FiO2 05/02/17 12:00 97.2 77 15 139/70 (93) 95 05/02/17 08:00 98.6 87 18 128/91 (103) 94 05/02/17 04:00 97.9 71 18 150/74 (99) 95 05/02/17 00:00 97.6 73 20 141/69 (93) 96 05/01/17 20:00 98.1 81 20 178/82 (114) 95 05/01/17 16:00 97.2 73 18 143/76 (98) 96 I/O 05/01/17 05/01/17 05/01/17 05/02/17 05/02/17 05/02/17 07:00 15:00 23:00 07:00 15:00 23:00 Intake Total 1777 ml 2400 ml 1820 ml Output Total 1650 ml 800 ml 1150 ml Balance 127 ml 1600 ml 670 ml Intake Oral 240 ml 1400 ml 720 ml IV Total 1537 ml 1000 ml 1100 ml Output Urine Total 1650 ml 800 ml 1150 ml # Bowel Movements 1 Result Diagram: 05/02/17 0633 05/02/17 0633 Imaging Last Impressions Abdomen/Pelvis CT 04/30/17 0518 Signed Impressions: Service Date/Time: Sunday, April 30, 2017 05:29 - CONCLUSION: 1. Bilateral hydronephrosis and hydroureter with distended urinary bladder with trabeculated wall. This is likely related to chronic bladder outlet obstruction given the enlarged prostate gland. 2. Moderate atherosclerotic disease. Victor Hugo Del Rosario MD Objective Remarks GENERAL: NAD, A&Ox3, HEAD: Normocephalic. NECK: Supple, trachea midline. No lymphadenopathy. EYES: No scleral icterus. No injection or drainage. CARDIOVASCULAR: Regular rate and rhythm without murmurs, gallops, or rubs. RESPIRATORY: Breath sounds equal bilaterally. No accessory muscle use. GASTROINTESTINAL: Abdomen soft, non-tender, nondistended. Vu with blood- tinged urine MUSCULOSKELETAL: No cyanosis, or edema. SKIN: Warm and dry. NEURO: No focal neurological deficits. A/P Problem List: (1) Obstructive uropathy ICD Code: N13.9 - Obstructive and reflux uropathy, unspecified Status: Acute Assessment and Plan 76-year-old male admitted secondary to urinary obstruction with acute renal insufficiency Hypertensive urgency Hypertension Improving Blood pressure treatments adjusted(Norvasc and Flomax) Continue to monitor blood pressures Obstructive uropathy Acute renal insufficiency Acute kidney injury with gross hematuria Follow renal function Improving after catheter placement. Continue IV hydration Continue to monitor renal function Urology following. May need flushing if hematuria worsens DVT prophylaxis SCDs Hold pharmacological prophylaxis secondary to hematuria Discharge Planning Possible discharge today Nam Nguyen MD May 02, 2017 15:39
[2017-05-02] MEDS ORDERED: TAMS5CAP PO (15:44)
[2017-05-02] MEDS ORDERED: AMLO10 PO (15:46)
--- NOTE | 2017-05-02 15:46 | HHI.DCPOC ---
Discharge Care Plan Diagnosis: (1) Obstructive uropathy Your Health Problems Are: Difficulty with ADL Exercise Tolerance Goals to Promote Your Health * To prevent worsening of your condition and complications * To maintain your health at the optimal level Directions to Meet Your Goals Take your medications as prescribed Follow your dietary instruction Follow activity as directed Keep your appointments as scheduled Take your immunizations and boosters as scheduled If your symptoms worsen call your PCP, if no PCP go to Urgent Care Center or Emergency Room Smoking is Dangerous to Your Health. Avoid second hand smoke Call the 24-hour hour crisis hotline for domestic abuse at Nam Nguyen MD May 02, 2017 15:46
--- NOTE | 2017-05-02 15:49 | HHI.FF ---
Face to Face Verification Diagnosis: (1) Enlarged prostate Home Health Nursing Order: Medical education Signs/symptoms of disease process Medication education-adverse effect Nursing assessment with vital signs Vu catheter maintenance I have seen patient Noe Posadas on 05/02/17. My clinical findings support the need for the requested home health care services because: Ltd mobility - disease progression Med compliance is questionable I certify that my clinical findings support that this patient is homebound because: Need for psychosocial assistance Nam Nguyen MD May 02, 2017 15:49
--- NOTE | 2017-05-02 15:54 | HHI.DS ---
Discharge Summary Admission Date Apr 30, 2017 at 06:32 Discharge Date: May 02, 2017 Admitting Diagnosis obstructive uropathy, renal insufficiency, enlarged prostate (1) Obstructive uropathy ICD Code: N13.9 - Obstructive and reflux uropathy, unspecified Diagnosis: Principal Status: Acute Procedures none Brief History - From Admission 76-year-old male with a past medical history significant for BPH presents to the emergency department with a 2 day history of left sided flank pain. The patient states that his pain was so great that he had emesis approximately 4-5 times. His pain resolved somewhat during the day yesterday and he went to bed but awoke from sleep at 2 AM in severe pain. He was brought to the emergency department for further evaluation. He denies any fever or chills. States he takes Flomax daily. He states he has been urinating small amounts lately. Denies any difficulty with starting or stopping flow. Does report that he feels he was not fully emptying his bladder. He was evaluated by urology in May 2015 for an elevated PSA, was started on Flomax with instructions to observe. Lab values significant for a creatinine of 2.06. CT of the abdomen/ pelvis revealed bilateral hydronephrosis and hydroureter with distended urinary bladder likely related to chronic bladder outlet obstruction secondary to enlarged prostate. Patient was found to be hypertensive on his arrival to the emergency department. He states he has never had high blood pressure and does not take any antihypertensive medications. His blood pressure this morning was 207/108. He denies headache or visual changes. CBC/BMP: 05/02/17 0633 05/02/17 0633 Significant Findings Laboratory Tests Test 04/30/17 04:05 04/30/17 05:30 05/01/17 04:52 05/02/17 06:33 Red Blood Count 4.36 MIL/MM3 (4.50-5.90) 3.98 MIL/MM3 (4.50-5.90) 4.00 MIL/MM3 (4.50-5.90) Monocytes (%) (Auto) 8.2 % (0.0-8.0) 8.1 % (0.0-8.0) Blood Urea Nitrogen 26 MG/DL (7-18) 22 MG/DL (7-18) Creatinine 2.06 MG/DL (0.60-1.30) 1.84 MG/DL (0.60-1.30) 1.40 MG/DL (0.60-1.30) Chloride Level 110 MEQ/L (98-107) 110 MEQ/L (98-107) 111 MEQ/L (98-107) Estimat Glomerular Filtration Rate 31 ML/MIN (>89) 36 ML/MIN (>89) 49 ML/MIN (>89) Creatine Kinase MB 5.2 NG/ML (0.5-3.6) Troponin I LESS THAN 0.02 NG/ML Lipase 559 U/L (73-393) 470 U/L (73-393) Urine Occult Blood MOD (NEG) Urine RBC 9 /hpf (0-3) Urine Mucus FEW /lpf (OCC) Hemoglobin 12.2 GM/DL (13.0-17.0) 12.3 GM/DL (13.0-17.0) Hematocrit 36.6 % (39.0-51.0) 36.8 % (39.0-51.0) Eosinophils (%) (Auto) 4.3 % (0.0-4.0) 4.8 % (0.0-4.0) Total Protein 6.2 GM/DL (6.4-8.2) 6.2 GM/DL (6.4-8.2) Albumin 2.8 GM/DL (3.4-5.0) 2.8 GM/DL (3.4-5.0) Calcium Level 8.1 MG/DL (8.5-10.1) 8.1 MG/DL (8.5-10.1) Aspartate Amino Transf (AST/SGOT) 14 U/L (15-37) Imaging Last Impressions Abdomen/Pelvis CT 04/30/17 0518 Signed Impressions: Service Date/Time: Sunday, April 30, 2017 05:29 - CONCLUSION: 1. Bilateral hydronephrosis and hydroureter with distended urinary bladder with trabeculated wall. This is likely related to chronic bladder outlet obstruction given the enlarged prostate gland. 2. Moderate atherosclerotic disease. VictorH ugo Del Rosario MD PE at Discharge GENERAL: NAD, A&Ox3, HEAD: Normocephalic. NECK: Supple, trachea midline. No lymphadenopathy. EYES: No scleral icterus. No injection or drainage. CARDIOVASCULAR: Regular rate and rhythm without murmurs, gallops, or rubs. RESPIRATORY: Breath sounds equal bilaterally. No accessory muscle use. GASTROINTESTINAL: Abdomen soft, non-tender, nondistended. Vu with blood- tinged urine MUSCULOSKELETAL: No cyanosis, or edema. SKIN: Warm and dry. NEURO: No focal neurological deficits. Hospital Course 76-year-old male admitted secondary to urinary obstruction with acute renal insufficiency Hypertensive urgency Hypertension Improving Blood pressure treatments adjusted(Norvasc and Flomax) Continue to monitor blood pressures Obstructive uropathy Acute renal insufficiency Acute kidney injury with mild gross hematuria Follow renal function Improving after catheter placement and IV hydration Continue to monitor renal function Urology following and cleared patient for discharge. May need irrigation if hematuria worsens Mildly elevated lipase. Patient denies abdominal pain with normal pancreas on CT. Monitor DVT prophylaxis SCDs Hold pharmacological prophylaxis secondary to hematuria Pt Condition on Discharge: Stable Discharge Disposition: Disch w/ Home Health Serv Discharge Time: > 30 minutes Discharge Instructions DIET: Follow Instructions for: Heart Healthy Diet Activities you can perform: Regular-No Restrictions Activities to Avoid: Driving Follow up Referrals: PCP Follow-up - 2-3 Days Urology - 1 Week New Medications: Amlodipine (Norvasc) 10 Mg Tab 10 MG PO DAILY for Blood Pressure Management, #30 TAB Tamsulosin (Flomax) 0.4 Mg Cap 0.4 MG PO DAILY for prosdtate, #30 CAP Nam Nguyen MD May 02, 2017 15:54
[2017-05-02 16:00] VITALS: BP 163/77; PULSE 77; RESP 17; TEMP 97.6; O2SAT 95
== END 2017-05-02 17:57 | disposition home health service (06) | DRG 683 ==
LOC: NEPE 03:43 → NEDA 06:32 → N07A 07:18
PROVIDERS: ADMIT Internal Medicine; ATTEND Internal Medicine
PROC: 0T9B70Z Drainage of Bladder with Drainage Device, Via Natural or Artificial Opening (ICD-10-PCS; principal; 2017-04-30)
DX: N17.9 Acute kidney failure, unspecified (principal); N13.8 Other obstructive and reflux uropathy; R31.0 Gross hematuria; N13.39 Other hydronephrosis; N40.1 Benign prostatic hyperplasia with lower urinary tract symptoms; I16.0 Hypertensive urgency; I10 Essential (primary) hypertension; R33.8 Other retention of urine; Z85.828 Personal history of other malignant neoplasm of skin
CPT/HCPCS: 51703; 74176; 80053; 81001; 82550; 82552; 83690; 84484; 85025; 85610; 85730; 93005; 96374; 96375; J1644; J2270; J2405; J7030